=== PATIENT | female | born 1950 | race Caucasian/White ===

== ENCOUNTER 2024-06-10 13:01 | Outpatient (CLI) | payer MEDICARE | END 2024-06-10 23:59 | disposition home or self-care (01) | LOC: MRI 13:01 | PROVIDERS: ATTEND Family Medicine | DX: S32.010A Wedge compression fracture of first lumbar vertebra, initial encounter for closed fracture (principal); X58.XXXA Exposure to other specified factors, initial encounter; Y93.89 Activity, other specified; Y92.89 Other specified places as the place of occurrence of the external cause; Y99.8 Other external cause status | CPT/HCPCS: 72148 ==